=== PATIENT | female | born 1955 | race Caucasian/White ===

== ENCOUNTER 2017-07-06 15:57 | Inpatient (IN) ==
--- NOTE | 2017-07-06 16:12 | Emergency Department Report ---
General Adult HPI - General Stated complaint: sent from dr medel office, poss collasped lung Time Seen by Provider: 07/06/17 16:11 - Related Data Home Medications Medication Instructions Recorded Confirmed No known Home medications [No home 07/06/17 07/06/17 meds] Allergies Allergy/AdvReac Type Severity Reaction Status Date / Time No Known Allergies Allergy Verified 07/06/17 16:18 [facility] Patient Stated Medical History Hx Kidney Stones Yes Anemia Yes Course Vital Signs Temperature 98.2 F 07/06/17 16:19 Pulse Rate 103 H 07/06/17 16:19 Respiratory Rate 16 07/06/17 16:19 Blood Pressure 132/89 07/06/17 16:19 Pulse Oximetry 96 07/06/17 16:19 Temperature 98.2 F 07/06/17 16:19 Pulse Rate 103 H 07/06/17 16:19 Respiratory Rate 16 07/06/17 16:19 Blood Pressure 132/89 07/06/17 16:19 Pulse Oximetry 96 07/06/17 16:19 Medical Decision Making - Lab Data Result diagrams: 07/06/17 17:21 07/06/17 17:21 Lab Results 07/06/17 07/06/17 07/06/17 Range/Units 17:21 17:21 17:21 WBC 7.9 (4.5-11.0) T/MM3 RBC 4.95 (4.00-5.20) M/MM3 Hgb 14.4 (12-16) GM/DL Hct 43.5 (36-46) % MCV 87.9 (80-100) UM3 MCH 29.1 (26-34) UUG MCHC 33.1 (31-37) GM/DL RDW Std Deviation 45.1 (36.9-50.2) FL Plt Count 243 (130-400) T/MM3 MPV 10.3 (9.4-12.4) UM3 Immature Gran % (Auto) 0.1 (0.0-0.5) % Neut % (Auto) 74.1 H (33-66) % Lymph % (Auto) 18.9 L (23-45) % Grundy % (Auto) 5.9 (0-9.0) % Eos % (Auto) 0.5 (0-4) % Baso % (Auto) 0.5 (0-2) % Neut # (Auto) 5.9 (1.8-7.7) T/MM3 Lymph # (Auto) 1.5 (1-4.8) T/MM3 Grundy # (Auto) 0.5 (0-0.8) T/MM3 Eos # (Auto) 0.0 (0-0.5) T/MM3 Baso # (Auto) 0.0 (0-0.2) T/MM3 Abs Immat Gran (auto) 0.01 (0.00-0.03) T/MM3 INR 1.08 (0.99-1.21) Turbidity < 20 (0-20) Sodium 145 H (134-144) MEQ/L Potassium 4.5 (3.6-5) MEQ/L Chloride 108 H (98-107) MEQ/L Carbon Dioxide 26 (22-30) MEQ/L Anion Gap 11 (5-15) MEQ/L BUN 22.0 H (7-17) MG/DL Creatinine 0.9 (0.7-1.2) MG/DL GFR Calculation 63 BUN/Creatinine Ratio 24 (6-26) RATIO Glucose 121 H (65-110) MG/DL Calculated Osmolality 283 H (261-280) MOSM/KG Calcium 9.8 (8.4-10.2) MG/DL Total Bilirubin 0.70 (0.20-1.30) MG/DL Conjugated Bilirubin 0.00 (0.00-0.30) MG/DL Unconjugated Bilirubin 0.30 (0.00-1.1) MG/DL Icterus Index < 2 (0-7) AST 32 (14-36) U/L ALT 33 (9-52) U/L Alkaline Phosphatase 87 (38-126) U/L Total Protein 8.0 (6.3-8.2) G/DL Albumin 4.2 (3.5-5.0) G/DL Globulin 3.8 H (2.4-3.6) G/DL Albumin/Globulin Ratio 1.1 (1.1-2.2) RATIO Specimen Hemolysis 133 H (0-25) Disposition Clinical Impression: Pneumothorax of left lung after biopsy Disposition: 02 To [facility] Acute Care Condition: Stable Prescriptions: No Action No known Home medications [No home meds] [facility] Time of Disposition: 17:46 - Seen By: physician
--- OUTSIDE RECORDS SUMMARY | 2017-07-06 16:25 | External Medical Summary | Continuity Of Care Document ---
:1955 Author Organization [facility] Address [address] [place] [address] Phone Care Team Providers Name Role Phone ALLISON MAYORGA DONDY Primary Care Provider STAR SANFORD, ALESSANDRO Bowen Attending Provider Results Lab Results Visit/Account #[id number] (February 29, 2016 4:04pm - March 04, 2016 10:42am) Test Result Date/Time CBC WITH REFLEXED MANUAL DIFF WHITE BLOOD COUNT(4.0-11.0 10E3/UL) 5.4 10E3/UL March 01, 2016 6:25am 4.2 10E3/UL March 02, 2016 7:15pm RED BLOOD COUNT(4.00-5.20 10E6/UL) 3.76 10E6/UL March 01, 2016 6:25am 3.63 10E6/UL March 02, 2016 7:15pm HEMOGLOBIN(12.0-16.0 G/DL) 10.6 G/DL March 01, 2016 6:25am 10.5 G/DL March 02, 2016 7:15pm HEMATOCRIT(36.0-46.0 %) 33.4 % March 01, 2016 6:25am 31.7 % March 02, 2016 7:15pm MEAN CORPUSCULAR VOLUME(82.0-100.0 FL) 88.8 FL March 01, 2016 6:25am 87.3 FL March 02, 2016 7:15pm 78398-8: MEAN CORPUSCULAR HEMOGLOBIN(26.0-34.0 PG) 28.2 PG March 01, 2016 6: 25am 28.9 PG March 02, 2016 7:15pm MEAN CORPUSCULAR HGB CONC(31.5-36.5 G/DL) 31.7 G/DL March 01, 2016 6:25am 33.1 G/DL March 02, 2016 7:15pm RED CELL DISTRIBUTION WIDTH(11.5-14.5 %) 15.1 % March 01, 2016 6:25am 14.8 % March 02, 2016 7:15pm 777-3: PLATELET COUNT(150-450 10E3/UL) 169 10E3/UL March 01, 2016 6:25am 132 10E3/UL March 02, 2016 7:15pm MEAN PLATELET VOLUME(8.2-12.4 FL) 10.1 FL March 01, 2016 6:25am 10.0 FL March 02, 2016 7:15pm DIFF TYPE MANUAL March 01, 2016 6:25am MANUAL March 02, 2016 7:15pm NEUTROPHIL % (MANUAL)(40-70 %) 81 % March 01, 2016 6:25am 76 % March 02, 2016 7:15pm LYMPHOCYTES % (MANUAL)(15-45 %) 18 % March 01, 2016 6:25am 24 % March 02, 2016 7:15pm MONOCYTES % (MANUAL)(2-10 %) 1 % March 01, 2016 6:25am 0 % March 02, 2016 7:15pm EOSINOPHILS % (MANUAL)(0-6 %) 0 % March 01, 2016 6:25am 0 % March 02, 2016 7:15pm 30579-8: BASOPHILS % (MANUAL)(0-1 %) 0 % March 01, 2016 6:25am 0 % March 02, 2016 7:15pm NUCLEATED RBCS (MANUAL)(0-0 %) 0 % March 01, 2016 6:25am 0 % March 02, 2016 7:15pm 753-4: NEUTROPHILS # (MANUAL)(2.5-7.5 10E3/UL) 4.4 10E3/UL March 01, 2016 6: 25am 3.2 10E3/UL March 02, 2016 7:15pm 732-8: LYMPHOCYTES # (MANUAL)(1.0-4.0 10E3/UL) 1.0 10E3/UL March 01, 2016 6: 25am 1.0 10E3/UL March 02, 2016 7:15pm 743-5: MONOCYTES # (MANUAL)(0.2-0.8 10E3/UL) 0.1 10E3/UL March 01, 2016 6:25am 705-4: BASOPHILS # (MANUAL)(0.0-0.2 10E3/UL) 0.0 10E3/UL March 01, 2016 6:25am 0.0 10E3/UL March 02, 2016 7:15pm 9317-9: PLATELET ESTIMATE ADEQUATE March 01, 2016 6:25am ADEQUATE March 02, 2016 7:15pm 39794-9: WBC MORPHOLOGY COMMENT NORMAL March 01, 2016 6:25am NORMAL March 02, 2016 7:15pm 6742-1: RBC MORPHOLOGY COMMENT NORMAL March 01, 2016 6:25am NORMAL March 02, 2016 7:15pm 75230-1: PLATELET MORPHOLOGY COMMENT NORMAL March 01, 2016 6:25am NORMAL March 02, 2016 7:15pm UA WITH SCREEN FOR CULTURE 5778-6: COLOR,URINE IGNACIA February 29, 2016 8:15pm 65929-3: CLARITY,URINE SL CLOUDY February 29, 2016 8:15pm GLUCOSE, URINE(NEGATIVE MG/DL) NEGATIVE MG/DL February 29, 2016 8:15pm URINE BILIRUBIN(NEGATIVE) NEGATIVE February 29, 2016 8:15pm KETONES,URINE(NEGATIVE MG/DL) NEGATIVE MG/DL February 29, 2016 8:15pm URINE SPECIFIC GRAVITY(1.001-1.035) 1.025 February 29, 2016 8:15pm 59529-6: URINE BLOOD(NEGATIVE) LARGE February 29, 2016 8:15pm 2756-5: URINE PH(5.0-9.0) 7.0 February 29, 2016 8:15pm URINE PROTEIN(Less than 20 MG/DL) 30 MG/DL February 29, 2016 8:15pm 08907-8: URINE UROBILINOGEN(0.2-1.0 MG/DL) 0.2 MG/DL February 29, 2016 8:15pm URINE NITRITE(NEGATIVE) NEGATIVE February 29, 2016 8:15pm 5799-2: LEUKOCYTE ESTERASE ,URINE(NEGATIVE) NEGATIVE February 29, 2016 8:15pm 630-4: URINE CULTURE NOT INDICATED February 29, 2016 8:15pm URINE MICROSCOPIC REQUIRED YES February 29, 2016 8:15pm URINE WBCS(/HPF) NONE SEEN /HPF February 29, 2016 8:15pm 10499-6: URINE RBCS(/HPF) Greater than 100 /HPF February 29, 2016 8:15pm 57988-8: URINE EPITHELIAL CELLS(/HPF) 0-3 /HPF February 29, 2016 8:15pm BACTERIA,URINE(/HPF) TRACE /HPF February 29, 2016 8:15pm URINE CRYSTALS(/HPF) NONE SEEN /HPF February 29, 2016 8:15pm URINE CASTS(/LPF) NONE SEEN /LPF February 29, 2016 8:15pm URINE COMMENTS NONE February 29, 2016 8:15pm 33588-4: COMPLETE METABOLIC PROFILE GLUCOSE(70-110 MG/DL) 136 MG/DL March 02, 2016 7:15pm BLOOD UREA NITROGEN(6-20 MG/DL) 13 MG/DL March 02, 2016 7:15pm CREATININE(0.50-1.20 MG/DL) 0.74 MG/DL March 02, 2016 7:15pm 65972-9: EST GLOMERULAR FILTRATION RATE(Greater than or equal to 60) Greater than or equal to 60 March 02, 2016 7:15pm Result Comments: If the patient is of -[place] descent/extraction multiply the eGFR value by 1.212 to obtain the actual eGFR. >=60 mg/dL Normal 30-59 mg/dL Moderate Kidney Disease 15-29 mg/dL Severe Kidney Disease <15 mg/dL Kidney Failure BUN CREATININE RATIO(10.0-20.0 RATIO) 18.0 RATIO March 02, 2016 7:15pm SODIUM(135-145 MMOL/L) 135 MMOL/L March 02, 2016 7:15pm POTASSIUM(3.6-5.0 MMOL/L) 3.5 MMOL/L March 02, 2016 7:15pm CHLORIDE(101-111 MMOL/L) 102 MMOL/L March 02, 2016 7:15pm 8-9: CO2(21-31 MMOL/L) 29 MMOL/L March 02, 2016 7:15pm ANION GAP(8-18) 8 March 02, 2016 7:15pm OSMO CALCULATED(270.0-290.0) 272.3 March 02, 2016 7:15pm CALCIUM(8.5-10.5 MG/DL) 8.5 MG/DL March 02, 2016 7:15pm BILIRUBIN,TOTAL(0.1-1.2 MG/DL) 0.4 MG/DL March 02, 2016 7:15pm ALKALINE PHOSPHATASE(42-121 IU/L) 58 IU/L March 02, 2016 7:15pm ASPARTATE AMINO TRANSFERASE(10-42 IU/L) 19 IU/L March 02, 2016 7:15pm ALANINE AMINOTRANSFERASE(10-60 IU/L) 20 IU/L March 02, 2016 7:15pm TOTAL PROTEIN(6.4-8.2 G/DL) 5.9 G/DL March 02, 2016 7:15pm ALBUMIN(3.5-5.5 G/DL) 3.0 G/DL March 02, 2016 7:15pm GLOBULIN(2.4-3.6) 2.9 March 02, 2016 7:15pm ALBUMIN/GLOBULIN RATIO(0.9-1.8 RATIO) 1.0 RATIO March 02, 2016 7:15pm BASIC METABOLIC PANEL GLUCOSE(70-110 MG/DL) 108 MG/DL March 01, 2016 6:25am BLOOD UREA NITROGEN(6-20 MG/DL) 25 MG/DL March 01, 2016 6:25am CREATININE(0.50-1.20 MG/DL) 1.16 MG/DL March 01, 2016 6:25am 32643-5: EST GLOMERULAR FILTRATION RATE(Greater than or equal to 60) 47 March 01, 2016 6:25am Result Comments: If the patient is of -[place] descent/extraction multiply the eGFR value by 1.212 to obtain the actual eGFR. >=60 mg/dL Normal 30-59 mg/dL Moderate Kidney Disease 15-29 mg/dL Severe Kidney Disease <15 mg/dL Kidney Failure BUN CREATININE RATIO(10.0-20.0 RATIO) 22.0 RATIO March 01, 2016 6:25am SODIUM(135-145 MMOL/L) 134 MMOL/L March 01, 2016 6:25am POTASSIUM(3.6-5.0 MMOL/L) 3.5 MMOL/L March 01, 2016 6:25am CHLORIDE(101-111 MMOL/L) 101 MMOL/L March 01, 2016 6:25am 8-9: CO2(21-31 MMOL/L) 29 MMOL/L March 01, 2016 6:25am ANION GAP(8-18) 8 March 01, 2016 6:25am OSMO CALCULATED(270.0-290.0) 273.2 March 01, 2016 6:25am CALCIUM(8.5-10.5 MG/DL) 8.1 MG/DL March 01, 2016 6:25am Allergies and Adverse Reactions Allergies and Adverse Reactions Patient Unit Number: [id number] Agent Type Reaction Severity Status PROCHLORPERAZINE Drug Adverse Reaction HALLUCINATIONS Unknown Active Problem List Problem List Visit/Account #[id number] (February 29, 2016 4:04pm - March 04, 2016 10:42am) Acute Problems: Code/Condition Comments Documented Start Documented Code(s) Date Resolved Date Abdominal pain ICD10: R10.9 Abdominal pain ICD9: 789.00 Abdominal pain SNOMED: 46085168 Abdominal pain Hematuria ICD10: R31.9 Hematuria ICD9: 599.70 Hematuria SNOMED: 69726995 Hematuria Cancer of left female breast ICD10: C50.912 Cancer of left female breast ICD9: 174.9 Cancer of left female breast SNOMED: 159679274 Cancer of left female breast H/O mastectomy ICD10: Z90.10 History of mastectomy ICD9: V45.71 History of mastectomy SNOMED: 690965503 History of mastectomy Plan of Care Plan Of Care Visit/Account #[id number] (February 29, 2016 4:04pm - March 04, 2016 10:42am) Patient Instructions Instructions DI for Hematuria Vital Signs Vital Signs Visit/Account #[id number] (February 29, 2016 4:04pm - March 04, 2016 10:42am) Sign First Result Last Result Code(s) Blood Pressure 127/ 59 mm[Hg] On February 29, 2016 9:51pm 145/ 75 mm[Hg] On March 04, 2016 9:28am 8480-6 BP Systolic Heart Rate/Pulse Pulse Rate (adult): 65 /min On February 29, 2016 9:51pm Pulse Rate (adult): 90 /min On March 04, 2016 9:28am 8867-4 Heart Rate 8893-0 Pulse rate Respiratory Rate Respiratory Rate: 16 /min On February 29, 2016 9:51pm Respiratory Rate: 16 /min On March 04, 2016 9:28am 9279-1 Respiratory rate Temperature in Fahrenheit Temperature (Fahrenheit): 97.1 [degF] On February 29, 2016 9:51pm Temperature (Fahrenheit): 97.0 [degF] On March 04, 2016 9:28am 8310-5 Body Temperature Functional Status Functional and Cognitive Status No Functional Status Data Medications Home Medications - Medications that the patient was taking prior to arrival at the hospital Visit/Account #[id number] (February 29, 2016 4:04pm - March 04, 2016 10:42am) Medication Route Sig/Schedule Precondition/Indication Comments/ Instructions Codes DECADRON(DEXAMETHASONE) 4 MG TAB ORAL TWICE A DAY DAY BEFORE, DAY OF, DAY AFTER Rx Instructions: Dexamethasone 4 MG Oral Tablet (RxNorm): 275411 Dose: 8 MG CHEMO DECADRON (DEXAMETHASONE) NDC: 43301111270 Prilosec(OMEPRAZOLE) 20 MG CAP ORAL 60 MIN BEFORE BKFST Omeprazole 20 MG Delayed Release Oral Capsule (RxNorm): 472808 Dose: 20 MG Prilosec (OMEPRAZOLE) NDC: 13869092972 TYLENOL ARTHRITIS EXTENDED RELIEF(ACETAMINOPHEN ER) 650 MG TAB ORAL EVERY 8 HOURS PAIN 8 HR Acetaminophen 650 MG Extended Release Oral Tablet [Mapap] ( RxNorm): 5533181 Dose: 1300 MG TYLENOL ARTHRITIS EXTENDED RELIEF (ACETAMINOPHEN ER) NDC: 41207558759 NORCO 7.5-325 TABLET(HYDROcodone BIT/ACETAMINOPHEN) 1 EACH TABLET ORAL Q4H PAIN Acetaminophen 325 MG / Hydrocodone Bitartrate 7.5 MG Oral Tablet (RxNorm ): 712536 Dose: 0.5-1 TAB NORCO 7.5-325 TABLET (HYDROcodone BIT/ACETAMINOPHEN) NDC: 45061141639 ZOFRAN(ONDANSETRON) 4 MG TABLET ORAL EVERY 6 HOURS NAUSEA/VOMITING Ondansetron 4 MG Oral Tablet (RxNorm): 392257 Dose: 4 MG ZOFRAN (ONDANSETRON) NDC: 85714525022 Inpatient/Ordered Medications - Medications administered during hospital visit Visit/Account #[id number] (February 29, 2016 4:04pm - March 04, 2016 10:42am) Medication Route Sig/Schedule Precondition/Indication Comments/ Instructions Codes NORCO 5-325(HYDROcodone BIT/ACETAMINOPHEN) 1 TAB TAB ORAL Q4H PRN Reason: MODERATE PAIN Label Comments: Acetaminophen 325 MG / Hydrocodone Bitartrate 5 MG Oral Tablet (RxNorm): 191289 Dose: 0 TAB Do not exceed 4000 mg acetaminophen/24 hours. NORCO 5-325 (HYDROcodone BIT/ACETAMINOPHEN) NDC: 27538625857 Special Dose Instructions: 1-2 TABS PROTONIX(PANTOPRAZOLE SOD) 40 MG TAB ORAL 60 MIN BEFORE BKFST pantoprazole 40 MG Delayed Release Oral Tablet [Protonix] (RxNorm): 860536 Dose: 40 MG PROTONIX (PANTOPRAZOLE SOD) NDC: 19099562268 DULCOLAX(BISACODYL) 10 MG SUPPOSITORY RECTALLY NEEDED PRN Reason: CONSTIPATION Bisacodyl 10 MG Rectal Suppository [Bisac-Evac] (RxNorm): 871123 Dose: 10 MG DULCOLAX (BISACODYL) NDC: 16413075118 COLACE(DOCUSATE SODIUM) 100 MG CAP ORAL TWICE A DAY Docusate Sodium 100 MG Oral Capsule (RxNorm): 8689141 Dose: 100 MG COLACE (DOCUSATE SODIUM) NDC: 02621914514 MILK OF MAGNESIA 400 MG/5 ML(MAGNESIUM HYDROXIDE) 30 ML SUSPENSION ORAL DAILY PRN Reason: CONSTIPATION Label Comments: Magnesium Hydroxide 80 MG/ML Oral Suspension (RxNorm): 056768 Dose: 30 ML shake well MILK OF MAGNESIA 400 MG/5 ML (MAGNESIUM HYDROXIDE) NDC: 54936876886 IV Medication INTRAVEN .Q10H (Rate: 100 MLS/HR Duration: 10 HR) Carriers : Carriers: Sodium Chloride 0.154 MEQ/ML Injectable Solution (RxNorm): 858330 NORMAL SALINE(SODIUM CHLORIDE) 1000 ML INJECTION NORMAL SALINE ( SODIUM CHLORIDE) NDC: 12725727292 Dose: 1000 ML MORPHINE SULFATE 4 MG/ML INJECTION INTRAVEN Q2H PRN Reason: SEVERE PAIN Label Comments: 1 ML Morphine Sulfate 4 MG/ML Prefilled Syringe (RxNorm): 593486 Dose: 0 ML MAY INCREASE FALL RISK (MORPHINE SULFATE) NDC: 64611686999 Special Dose Instructions: 1-4 MG TORADOL INJ(KETOROLAC TROMETHAMINE) 30 MG/ML INJECTION INTRAVEN Q6H PRN Reason: MODERATE PAIN Label Comments: 1 ML Ketorolac Tromethamine 30 MG/ML Injection (RxNorm): 7139944 Dose: 1 ML DO NOT EXCEED 5 DAYS OF THERAPY TORADOL INJ (KETOROLAC TROMETHAMINE) NDC: 59679400306 IV Medication INTRAVEN .Q10H (Rate: 100 MLS/HR Duration: 10 HR) Carriers : Carriers: Sodium Chloride 0.154 MEQ/ML Injectable Solution (RxNorm): 271353 NORMAL SALINE(SODIUM CHLORIDE) 1000 ML INJECTION NORMAL SALINE ( SODIUM CHLORIDE) NDC: 99906771329 Dose: 1000 ML HEP-LOCK FLUSH SYRINGE(HEPARIN LOCK FLUSH) 500 UNIT/5 ML INJECTION INTRAVEN NEEDED PRN Reason: PORT FLUSH Label Comments: HEP-LOCK FLUSH SYRINGE ( HEPARIN LOCK FLUSH) NDC: 28783811320 Dose: 5 ML PORT FLUSHES: 5 mls after saline flush after medications OR blood draws. ACCESSED minimum: at least 1-2 times per week DEACCESSED minimum: at least monthly Discharge Medications - Medications that patient should continue to take. Review with physician Visit/Account #[id number] (February 29, 2016 4:04pm - March 04, 2016 10:42am) Medication Route Sig/Schedule Precondition/Indication Comments/ Instructions Codes DECADRON(DEXAMETHASONE) 4 MG TAB ORAL TWICE A DAY DAY BEFORE, DAY OF, DAY AFTER Rx Instructions: Dexamethasone 4 MG Oral Tablet (RxNorm): 559277 Dose: 8 MG CHEMO DECADRON (DEXAMETHASONE) NDC: 65710334147 Prilosec(OMEPRAZOLE) 20 MG CAP ORAL 60 MIN BEFORE BKFST Omeprazole 20 MG Delayed Release Oral Capsule (RxNorm): 963638 Dose: 20 MG Prilosec (OMEPRAZOLE) NDC: 71329562006 TYLENOL ARTHRITIS EXTENDED RELIEF(ACETAMINOPHEN ER) 650 MG TAB ORAL EVERY 8 HOURS PAIN 8 HR Acetaminophen 650 MG Extended Release Oral Tablet [Mapap] ( RxNorm): 5422476 Dose: 1300 MG TYLENOL ARTHRITIS EXTENDED RELIEF (ACETAMINOPHEN ER) NDC: 63242349283 NORCO 7.5-325 TABLET(HYDROcodone BIT/ACETAMINOPHEN) 1 EACH TABLET ORAL Q4H PAIN Acetaminophen 325 MG / Hydrocodone Bitartrate 7.5 MG Oral Tablet (RxNorm ): 440437 Dose: 0.5-1 TAB NORCO 7.5-325 TABLET (HYDROcodone BIT/ACETAMINOPHEN) NDC: 21415202017 ZOFRAN(ONDANSETRON) 4 MG TABLET ORAL EVERY 6 HOURS NAUSEA/VOMITING Ondansetron 4 MG Oral Tablet (RxNorm): 240085 Dose: 4 MG ZOFRAN (ONDANSETRON) [facility]: [id number] History Of Encounters Encounters Visit/Account #[id number] (February 29, 2016 4:04pm - March 04, 2016 10:42am) Account Physican Of Reason For Visit Diagnosis Start Stop Date/Time Status Record Visit Date/Time IN ALESSANDRO GRAVES MD ABD PAIN AND GROSS HEMATURIA R31.0: GROSS HEMATURIA ICD10 Feb 29, 2016 4:04pm Mar 04, 2016 10:42am History of Procedures Procedure List No procedures recorded. Discharge Instructions Discharge Instructions Visit/Account #[id number] (February 29, 2016 4:04pm - March 04, 2016 10:42am) DISCHARGE INSTRUCTIONS Physician Documentation PROVIDER INSTRUCTIONS Discharge Diet As Tolerated Discharge Diet As Tolerated REASON TO CALL PROVIDER Notify Physician if: Any questions or concerns FOLLOW UP APPOINTMENTS Follow Up With dr arellano as scedueled on Follow-up tests/procedures/outpatient needs: cbc diff/cmp/ldh Social History Social History No Social History Data. Immunizations Immunizations Patient Unit Number: [id number] Immunizations No immunizations recorded.
--- NOTE | 2017-07-06 16:35 | XRay Report ---
INDICATION: possible pneumothorax PROCEDURE: CHEST 2-VIEWS UPRIGHT (PA & LAT) Encounter: Initial COMPARISON: None FINDINGS: There is a moderate sized pneumothorax on the left, approximately 30%. No definite midline shifting of the mediastinum. Right lung is clear. No pleural effusion. There is an oval 2 cm nodule in the midportion of the left lung and an additional area of irregular opacity or mass measuring 3 cm in size just inferiorly. One of these presumably represents the previously biopsied lesion. Heart size and pulmonary vascularity are within normal limits. Mild degenerative change in the thoracic spine. Impression: 30% left-sided pneumothorax. Images and findings were reviewed with the ordering physician at the time of the exam. .
[2017-07-06] MEDS ORDERED: SALINE FLUSH 10ml SYRINGE IVF PRN (16:55)
[2017-07-06] MEDS ORDERED: MIDAZOLAM 2mg/2ml INJECTION IVP ONE (17:07)
[2017-07-06] MEDS ORDERED: FentaNYL 100 MCG/2 ML INJECTION IVP ONE (17:07)
[2017-07-06] MEDS: NS 1,000 ML IV SCH (17:25)
[2017-07-06] MEDS ORDERED: LIDOCAINE INFIL ONE (17:47)
[2017-07-06] MEDS ORDERED: EPI INFIL ONE (17:47)
--- NOTE | 2017-07-06 18:03 | General Surg History&Physical ---
- History of Present Illness Chief complaint: pneumothorax HPI: see HPI PFSH Patient Stated Medical History Hx Kidney Stones Yes Anemia Yes Right Breast cancer left lung nodule Surgical History: Right mastectomy . Port-a-cath placement . Removal Port-a-cath . 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 Medications Home Medications Medication Instructions Recorded Confirmed Type No known Home medications [No home 07/06/17 07/06/17 History meds] Allergies Allergy/AdvReac Type Severity Reaction Status Date / Time No Known Allergies Allergy Verified 07/06/17 16:18 Review of Systems 10-point ROS: negative except for HPI and the following: - Respiratory Additional comments: Denies SOA - Gastrointestinal Gastrointestinal: Present: constipation (in the last couple days) - Musculoskeletal Musculoskeletal: Present: joint pain (occasionally) - Neurological Neurological: Present: other (headache) - Psychiatric Psychiatric: Present: anxiety (regarding current situation, but not normally) - Vital Signs Last Vital Signs Temp 98.2 F 07/06/17 16:19 Pulse 103 H 07/06/17 16:19 Resp 16 07/06/17 16:19 BP 132/89 07/06/17 16:19 Pulse Ox 96 07/06/17 16:19 - Laboratory Result Diagrams: 07/06/17 17:21 07/06/17 17:21 General Surgery Results - Results Labs: 07/06/17 17:21 07/06/17 17:21 Hospital Course Summary Disclaimer: The visit summary below is not to be considered part of the above Progress Note.
[2017-07-06] MEDS ORDERED: ONDANSETRON 4 MG/2 ML INJECTION IVP PRN (18:54)
[2017-07-06] MEDS ORDERED: METOCLOPRAMIDE 10mg/2ml INJECTION IVP PRN (18:54)
[2017-07-06 18:56] VITALS: BMI 35.4
[2017-07-06] MEDS: KETOROLAC 15 MG/ML INJECTION IVP PRN (20:42)
[2017-07-06] MEDS: D5-1/2NS with KCL 20mEq 1,000 ML IV SCH (20:42)
[2017-07-07] MEDS: KETOROLAC 15 MG/ML INJECTION IVP PRN ×2 (02:34→08:45)
[2017-07-07] MEDS: NS 1,000 ML IV SCH ×2 (03:46→21:34)
[2017-07-07] MEDS: MORPHINE SULFATE 4 MG SYRINGE IVP PRN ×4 (04:22→17:46)
--- NOTE | 2017-07-07 07:01 | History and Physical ---
FINDINGS Mrs. Ruiz is a 62-year-old female whom I was asked to see this afternoon as a result of the discovery of a pneumothorax earlier today upon radiograph evaluation. Mrs. Ruiz has a past medical history significant for breast cancer. She has undergone a prior left mastectomy. Recently, upon radiograph evaluation, she was found to have an increasing left pulmonary nodule. The patient states that yesterday she went to [place] where a radiologist performed a percutaneous CT-guided biopsy of this nodule. Today, the patient underwent a PET scan and was informed following her procedure that she needed to present to the emergency room as the result of a pneumothorax. The patient states she has noted some discomfort within her left chest. She has not experienced severe shortness of breath or severe pleuritic chest pain. PAST MEDICAL HISTORY Will be performed by my nurse practitioner, Duane Mccray. PAST SURGICAL HISTORY Will be performed by my nurse practitioner, Duane Mccray. MEDICATIONS Will be performed by my nurse practitioner, Duane Mccray. ALLERGIES Will be performed by my nurse practitioner, Duane Mccray. SOCIAL HISTORY Will be performed by my nurse practitioner, Duane Mccray. FAMILY HISTORY Will be performed by my nurse practitioner, Duane Mccray. REVIEW OF SYSTEMS Luis Miguel be performed by my nurse practitioner, Duane Mccray. PHYSICAL EXAMINATION Mrs. Ruiz is a 62-year-old female who does not appear to be in acute distress. VITALS: Temperature 98.2, pulse 103, respirations 16, blood pressure 132/89, SaO2 96% on room air. HEENT: Normocephalic. Pupils are equal, round and reactive to light and accommodation. CHEST: Auscultation of the left apex does not reveal any breath sounds. Normal breath sounds present on the right apex. One can appreciate some diminished breath sounds on the left base. Normal auscultation of the right base noted. HEART: Regular rate and rhythm. Normal S1 and S2 without gallops, murmurs or clicks. ABDOMEN: Palpation of the abdomen reveals it to be soft and nontender. I do not appreciate any evidence for hepatosplenomegaly or abnormal masses. EXTREMITIES: Without clubbing, cyanosis, or edema. NEURO: Cranial nerves II-XII grossly intact. Patient is without focal motor or sensory deficits. LABORATORY/RADIOGRAPH EVALUATION The patient had a chest x-ray obtained through the ER facility. One can see on the chest x-ray perhaps 30-35% left pneumothorax. ASSESSMENT 62-year-old female with personal history of breast cancer, a history for increasing left pulmonary nodule, status post left percutaneous CT-guided lung biopsy with the postoperative complication of development of a moderate left pneumothorax. PLAN Insertion of left chest tube. After assessing the patient and looking at the chest x-ray, it was my recommendation that we proceed with a left tube thoracostomy. I did discuss with the patient and her what insertion of a chest tube would entail and its associated risks which include, but are not limited to, bleeding and/or infection. The patient understood and wished to proceed with placement of chest tube. Chest tube will be placed under some conscious sedation in the ER facility. Then patient will then be admitted to our facility for further care. JOYCELYN
--- NOTE | 2017-07-07 07:31 | General Surgery Procedure Note ---
Date of Procedure: 07/06/17 Surgeon: Erinn Postoperative Diagnosis: Left pneumotorax Procedure: Placement of left chest tube, placed to water seal suction Estimated Blood Loss: See Anesthesia Record. Pathology: none sent
--- NOTE | 2017-07-07 07:57 | XRay Report ---
Indication: post chest tube PROCEDURE: XR chest 1V: Encounter: Initial Comparison: July 06, 2017 at 1630 Findings: New left-sided chest tube in place with the tip projecting over the posterior left costophrenic angle at the T12 level. The pneumothorax has been evacuated. No visible remaining pneumothorax. Right lung is stable and clear. Heart size and mediastinal contours are unchanged. Pulmonary vascularity is stable. Impression: New left chest tube with evacuation of the left pneumothorax. .
--- NOTE | 2017-07-07 08:21 | General Surgery Progress Note ---
Subjective Patient reports: feels better Narrative: The heaviness in the left upper chest prior to chest tube is gone. She is on room air. She has not had a BM since Wednesday (3 days), will add Miralx to orders. She had some pain across mid back during the night, which is gone now. Now she has discomfort at tube insertion site only. - Vital Signs Last Vital Signs Temp 96.6 F L 07/07/17 02:43 Pulse 72 07/07/17 02:43 Resp 16 07/07/17 02:43 BP 144/69 H 07/07/17 02:43 Pulse Ox 93 07/07/17 02:43 - Laboratory Result Diagrams: 07/06/17 17:21 07/06/17 17:21 - Abnormal Exam Respiratory: other (left chest tube minimal blood tinged fluid in canister) - Normal Exam General: awake, alert Cardiovascular: regular rhythm, regular rate Respiratory: clear all lebron, no labored breathing Abdominal: soft, non-tender Psychiatric: normal affect Assessment and Plan (1) Pneumothorax of left lung after biopsy Current Visit: Yes Status: Acute Plan: CXR looks good this morning. There is no bubbling with cough in the Thoraseal Put CT to water seal only about 12:30 today. Repeat CXR tomorrow. Hospital Course Summary Disclaimer: The visit summary below is not to be considered part of the above Progress Note.
--- NOTE | 2017-07-07 08:51 | XRay Report ---
Indication: pneumothorax PROCEDURE: XR chest 1V: Encounter: Initial Comparison: July 06, 2017 Findings: Left chest tube remains in stable position. New platelike atelectasis in the left lower lobe. Pulmonary nodule noted in the left upper lobe. No clinically significant residual pneumothorax appreciated. Right lung remains stable and clear. Heart size and mediastinal contours are unchanged. Impression: New left basilar atelectasis. No significant residual pneumothorax with left chest tube. .
--- NOTE | 2017-07-07 09:24 | Procedure Note ---
DATE OF PROCEDURE 07/06/[address] Plasencia PREOPERATIVE DIAGNOSIS Iatrogenic left pneumothorax. POSTOPERATIVE DIAGNOSIS Iatrogenic left pneumothorax. PROCEDURE Left tube thoracostomy. ANESTHESIA Conscious IV sedation and local. BRIEF HISTORY/INDICATIONS Mrs. Ruiz is a 62-year-old female who recently underwent a percutaneous CT- guided lung biopsy in [place]. The patient was found today to have a 30% pneumothorax. It was recommended to the patient that she therefore undergo placement of a chest tube. For completeness please refer to notes in the patient's chart. DESCRIPTION OF PROCEDURE After informed consent was obtained the patient subsequently underwent conscious IV sedation by the ER physician. Left lateral chest wall was then prepped and draped in sterile fashion. 2% lidocaine with epinephrine was then injected along the anterior axillary line. A 2 cm incision was then made overlying the area of analgesia. A hemostat was then placed within the subcutaneous tissues and spread down to the underlying chest wall. Additional 2 % lidocaine with epinephrine was then injected up and over the underlying rib within the intercostal space. Next, a curved hemostat was then introduced through the area of analgesia and up and over the underlying rib and into the left thorax. A small amount of air could be heard escaping through the incision. Next, a 26-[place] chest tube was then placed through the incision into the left hemothorax. Chest tube was then secured to the lateral chest wall with 2-0 Ethibond. A sterile dressing was then applied. A postprocedure chest x-ray was then obtained that did reveal resolution of the pneumothorax. The patient tolerated the procedure without difficulty and will be sent back to the surgical floor for further care. JOYCELYN
[2017-07-07] MEDS: POLYETHYL GLYCOL 3350 17gm PACKET PO SCH (09:39)
[2017-07-07] MEDS: PANTOPRAZOLE 40 MG INJECTION IVP SCH (09:40)
--- NOTE | 2017-07-07 14:05 | Progress Note ---
DATE 07/07/2017 FINDINGS Mrs. Ruiz today was without complaints with the exception of some incisional discomfort at the chest tube insertion site. OBJECTIVE VITALS: Afebrile. Normotensive. Current vitals include temperature 98.5, pulse 64, respirations 18, blood pressure 139/79, SaO2 94% on room air. HEENT: Normocephalic. Pupils are equally round and react to light and accommodation. CHEST: Auscultation of the chest now reveals equal breath sounds. Yesterday at apex left breath sounds were absent prior to placement of tube thoracostomy. Patient was asked to cough. No evidence for air leak visible within water seal. LABORATORY/RADIOGRAPHIC EVALUATION The patient had chest x-ray today that did reveal some left basilar atelectasis. Pneumothorax has resolved following placement of chest tube. ASSESSMENT 62-year-old female with iatrogenic left pneumothorax following CT-guided percutaneous biopsy. Status post left tube thoracostomy. Patient doing well. PLAN Will place chest tube to water seal. Encourage incentive spirometry and deep breathing/coughing. Will repeat chest x-ray tomorrow and DC chest tube pending chest x-ray results. DEXTERD
[2017-07-07 15:33] VITALS: RESP 16
[2017-07-07] MEDS: D5-1/2NS with KCL 20mEq 1,000 ML IV SCH (17:47)
[2017-07-07] MEDS: HYDROCODONE/APAP 5mg/325mg TABLET PO PRN (21:33)
[2017-07-08] MEDS: NS 1,000 ML IV SCH (03:41)
[2017-07-08] MEDS: HYDROCODONE/APAP 5mg/325mg TABLET PO PRN (04:05)
[2017-07-08] MEDS: PANTOPRAZOLE 40 MG INJECTION IVP SCH (08:04)
[2017-07-08] MEDS: POLYETHYL GLYCOL 3350 17gm PACKET PO SCH (08:05)
--- NOTE | 2017-07-08 09:12 | XRay Report ---
Indication: f/u chest tube placed 07-06 PROCEDURE: XR chest 1V: Encounter: Initial Comparison: July 07, 2017 Findings: Left chest tube remains in stable position. Streaky atelectasis in the left lower lobe is similar. No clinically significant pneumothorax appreciated. Right lung is clear. Heart size and mediastinal contours are stable. Pulmonary vascularity is normal. Impression: No visible pneumothorax with left chest tube in place. .
--- NOTE | 2017-07-08 09:22 | General Surgery Progress Note ---
Subjective Patient reports: still having pain (at chest tube site and along mid left back, gone after CT removed.), tolerating a regular diet Narrative: She has an appointment with Dr. Kirkpatrick at :Jul 15, will have her come for CXR before that and see her about that time as well. - Vital Signs Last Vital Signs Temp 97.4 F 07/08/17 07:39 Pulse 60 07/08/17 07:39 Resp 16 07/08/17 07:39 BP 144/73 H 07/08/17 07:39 Pulse Ox 93 07/08/17 07:39 - Laboratory Result Diagrams: 07/06/17 17:21 07/06/17 17:21 - Radiology 07-08 CXR Comparison: July 07, 2017 Findings: Left chest tube remains in stable position. Streaky atelectasis in the left lower lobe is similar. No clinically significant pneumothorax appreciated. Right lung is clear. Heart size and mediastinal contours are stable. Pulmonary vascularity is normal. Impression: No visible pneumothorax with left chest tube in place. - Normal Exam General: awake, alert, oriented Cardiovascular: regular rhythm, regular rate Respiratory: clear all lebron (before and after chest tube removal), equal bilaterally, other (Skin sutures left in tact, suture removed from the chest tube. Xerform gauze and Foam tape applied to CT, with deep inspiration CT pulled out with pressure applied on Xeroform and tape.Additional foam tape applied. She tolerated removal without difficulty of complaint.) Abdominal: soft, non-tender Psychiatric: normal affect Assessment and Plan (1) Pneumothorax of left lung after biopsy Current Visit: Yes Status: Resolved Plan: CT has been to water seal for about 24 hours, CXT this am without sign of pneumothorax. CT pulled at 9am today. Will repeat CXR about 3pm. If remains stable she will be discharged today. She has an appointment with Dr. Kirkpatrick at :Jul 15, will have her come for CXR at the hospital at 10:30 and see her after the CXR in the office. Hospital Course Summary Disclaimer: The visit summary below is not to be considered part of the above Progress Note.
--- NOTE | 2017-07-08 10:36 | XRay Report ---
Indication: post removal chest tube PROCEDURE: XR chest 1V: Encounter: Initial Comparison: July 08, 2017 at 0550 Findings: Interval removal of the left chest tube. No clinically significant residual pneumothorax seen. Left lower lobe atelectasis is redemonstrated along with a left upper lobe nodule. Right lung is unchanged. Heart size and mediastinal contours are stable. Pulmonary vascularity is stable. Impression: Interval removal of the left chest tube without evidence of pneumothorax. .
--- NOTE | 2017-07-08 12:38 | Progress Note ---
DATE 07/08/2017 Ms. Ruiz was without complaints today. She did have her chest tube removed earlier. She was upright in the room. She did not appear to be in any acute distress. VITALS: Temperature 97.4, pulse 62, respirations 16, blood pressure 144/73, SaO2 93% on room air. HEENT: Normocephalic. Pupils are equal, round and reactive to light and accommodation. CHEST: Clear to auscultation bilaterally. HEART: Regular rate and rhythm. Normal S1 and S2 without gallops, murmurs or clicks. LABORATORY/RADIOGRAPH EVALUATION The patient had a chest x-ray obtained earlier this morning. No evidence for pneumothorax. ASSESSMENT 62-year-old female status post percutaneous CT-guided lung biopsy with the misfortune of developing iatrogenic pneumothorax. Status post tube thoracostomy. Patient doing well. PLAN Earlier today the patient's chest tube was discontinued. Will obtain a chest x- ray to make sure that the patient remains stable. Will then DC to home. JOYCELYN
[2017-07-08 15:52] VITALS: BP 143/71; PULSE 69; TEMP 98; O2SAT 96
--- NOTE | 2017-07-08 16:17 | XRay Report ---
Indication: POST CHEST TUBE REMOVAL PROCEDURE: XR chest 1V: Encounter: Initial Comparison: July 08, 2017 at 1014 Findings: No visible pneumothorax. Left lower lobe atelectasis is slightly improved. Left upper lobe nodule is redemonstrated. Right lung remains clear. No definite pleural effusion. Heart size and mediastinal contours are stable. Pulmonary vascularity is normal. Impression: No pneumothorax seen. .
--- NOTE | 2017-07-08 17:12 | Discharge Instructions ---
Discharge Plan - Med Rec/Dispo Referrals/Follow Up: Zoila Mccray APRN [Advanced Practice Nurse] - 07/15/17 10:30 am (go to [facility] to get chest x-ray, then to my office where the nurse will remove the stitches.) Virgil Kirkpatrick MD [Physician] - 07/15/17 11:30 am [facility] Instructions: Chest Tubes (GEN) Prescriptions: New PEG 3350 17gm PACKET [Miralax] 17 gm PO DAILY packet Hydrocodone/APAP 5/325 [[place] 5/325] 1 - 2 tab PO Q5H PRN #30 tab PRN Reason: Pain Discharge Instructions/Outpatient Orders: Provider Discharge Instructions Location: Determined By Patient - Disposition 01 Discharged Home, Self-Care
--- NOTE | 2017-07-08 18:04 | Discharge Summary ---
Discharge Information Date of admission: 07/07/17 13:11 Anticipated date of discharge: 07/08/17 Attending Physician: José Miguel Plasencia MD Primary care physician: Ken Varela MD - Discharge Diagnosis (1) Pneumothorax of left lung after biopsy Status: Resolved - Procedures Procedures: Date of Procedure: 07/06/17 Surgeon: Erinn Postoperative Diagnosis: Left pneumothorax Procedure: Placement of left chest tube, placed to ThoraSeal suction - Laboratory Labs: Laboratory Tests 07/06/17 07/06/17 17:21 17:21 WBC 7.9 Hgb 14.4 Plt Count 243 INR 1.08 - Radiology Radiology: 07/06 CXR Impression: 30% left-sided pneumothorax. Images and findings were reviewed with the ordering physician at the time of the exam. 07/07 CXR Comparison: July 06, 2017 Findings: Left chest tube remains in stable position. New platelike atelectasis in the left lower lobe. Pulmonary nodule noted in the left upper lobe. No clinically significant residual pneumothorax appreciated. Right lung remains stable and clear. Heart size and mediastinal contours are unchanged. Impression: New left basilar atelectasis. No significant residual pneumothorax with left chest tube. 10/08 7am CXR Comparison: July 07, 2017 Findings: Left chest tube remains in stable position. Streaky atelectasis in the left lower lobe is similar. No clinically significant pneumothorax appreciated. Right lung is clear. Heart size and mediastinal contours are stable. Pulmonary vascularity is normal. Impression: No visible pneumothorax with left chest tube in place. 07/08 4 pm CXR Comparison: July 08, 2017 at 1014 Findings: No visible pneumothorax. Left lower lobe atelectasis is slightly improved. Left upper lobe nodule is redemonstrated. Right lung remains clear. No definite pleural effusion. Heart size and mediastinal contours are stable. Pulmonary vascularity is normal. Impression: No pneumothorax seen. - History of Present Illness Chief complaint: pneumothorax HPI: Mrs. Ruiz is a 62-year-old female whom I was asked to see this afternoon as a result of the discovery of a pneumothorax earlier today upon radiograph evaluation. Mrs. Ruiz has a past medical history significant for breast cancer. She has undergone a prior left mastectomy. Recently, upon radiograph evaluation, she was found to have an increasing left pulmonary nodule. The patient states that yesterday she went to [place] where a radiologist performed a percutaneous CT-guided biopsy of this nodule. Today, the patient underwent a PET scan and was informed following her procedure that she needed to present to the emergency room as the result of a pneumothorax. The patient states she has noted some discomfort within her left chest. She has not experienced severe shortness of breath or severe pleuritic chest pain. Hospital Course This is a general summary of the patient's hospital course. For more details refer to the complete medical record. Hospital course: 07/06 Left chest tube placed to suction, patient tolerated procedure well. 07/07 CXR no pneumothorax, Chest tube placed to water seal, no bubbles. 07/08 CXR 7 am still good, no pneumothorax, chest tube pulled. CXR 4pm still no pneumothorax, patient DC'd to home with instructions to leave dressing in place till 07/15 repeat CXR and removal of chest tube sutures. Time spent with patient: greater than 35 minutes DVT Prophylaxis: SCD's Discharge Plan - Med Rec/Dispo Referrals/Follow Up: Virgil Kirkpatrick MD [Physician] - 07/15/17 11:30 am Zoila Mccray APRN [Advanced Practice Nurse] - 07/15/17 10:30 am (go to [facility] to get chest x-ray, then to my office where the nurse will remove the stitches.) [facility] Instructions: Chest Tubes (GEN) Prescriptions: New PEG 3350 17gm PACKET [Miralax] 17 gm PO DAILY packet Hydrocodone/APAP 5/325 [[place] 5/325] 1 - 2 tab PO Q5H PRN #30 tab PRN Reason: Pain Discharge Instructions/Outpatient Orders: Provider Discharge Instructions Location: Determined By Patient
== END 2017-07-08 18:00 | disposition home or self-care (01) | DRG 201 ==
LOC: SRG 15:57 → ED 15:57 → SRG 18:46
PROVIDERS: ADMIT Surgery; ATTEND Surgery